=== PATIENT | female | born 1940 | race Caucasian/White ===

== ENCOUNTER 2018-06-30 10:18 | Observation (INO) ==
[2018-06-30] MEDS ORDERED: Gadobutrol PF 2 MMOL/2 ML Vial (for RAD) IV.SIG ONE (10:19)
[2018-06-30] MEDS ORDERED: Morphine Inj 4 MG/ML Vial IM ONE (10:38)
--- NOTE | 2018-06-30 11:10 | XR ---
EXAM DATE: 06/30/2018 11:05 AM EST AGE/SEX: 78 years / Female INDICATIONS: Patient states left hip pain, no known trauma to area. CLINICAL DATA: This is the patient's initial encounter. Patient reports that signs and symptoms have been present for 4 - 6 days and indicates a pain score of 5/10. MEDICAL/SURGICAL HISTORY: None. . Left hip [place] [facility] [place] 2/3VWS[place] WO AP PELVIS, 07/15/2015. . FINDINGS: Today's exam is compared to the prior study. There is a left hip prosthesis in place. The hardware is grossly intact. No acute fracture or joint dislocation is demonstrated. There has been no significan t changes with the appearance of the left hip prosthesis compared to the prior examination. The bony structures of the pelvis are grossly intact. There is some focal degenerative changes at the pubic sy mphysis. CONCLUSION: Stable and unremarkable left hip prosthesis compared to the prior examination. Electronically signed by: Amilcar Chaudhry MD 06/30/2018 11:09 AM EST
--- NOTE | 2018-06-30 11:58 | CT ---
EXAM DATE: 06/30/2018 11:45 AM EST AGE/SEX: 78 years / Female INDICATIONS: Left hip pain unable to walk CLINICAL DATA: This is the patient's initial encounter. Patient reports that signs and symptoms have been present for 1 day and indicates a pain score of 5/10. MEDICAL/SURGICAL HISTORY: Diabetes. . left hip replacement RADIATION DOSE: 21.58 CTDI (mGy) ; Combined studies COMPARISON: No prior exams available for comparison. TECHNIQUE: Contiguous axial images were acquired with a multirow detector CT scanner without contras t. Multiplanar reconstructions in the sagittal and coronal plane were also performed. Using automate d exposure control and adjustment of the mA and/or kV according to patient size, radiation dose was k ept as low as reasonably achievable to obtain optimal diagnostic quality images. DICOM format image data is available electronically for review and comparison. FINDINGS: Vertebrae: No fracture or compression deformity. Alignment: No anterolisthesis or retrolisthesis. T12-L1: There is a minimal diffuse disc bulge. No spinal canal stenosis or neural foraminal stenosis is identified. L1-L2: There is a central disc extrusion that appears to extend both cranially and caudally from the disc space posterior to the L1 and L2 vertebral bodies. This likely has some mass effect on the thec al sac and potential nerve roots in the lateral recesses but no spinal canal stenosis is appreciated and no neural foraminal narrowing is seen. L2-L3: There is a moderate size diffuse disc bulge with small left foraminal disc protrusion. Mild f acet and ligamentum flavum hypertrophy is present. The lateral recesses are likely effaced but no sig nificant spinal canal stenosis is identified. There is mild left neural foraminal narrowing. L3-L4: There is a diffuse disc bulge with mild facet and ligamentum flavum hypertrophy. No spinal ca nal stenosis or neural foraminal narrowing is identified. L4-L5: There is a mild diffuse disc bulge with facet and ligamentum flavum hypertrophy. No spinal ca nal stenosis is identified and there is no significant neural foraminal narrowing. L5-S1: There is a mild diffuse disc bulge with mild facet hypertrophy. No spinal canal stenosis or n eural foraminal stenosis is identified. Other: There is asymmetric enlargement of the left psoas muscle with some degree of inflammation in t he adjacent fat. Aorta and iliac arteries demonstrate moderate to severe atherosclerotic disease and there is calcification throughout the uterine myometrium likely related to calcified blood vessels. CONCLUSION: 1. Mild multilevel degenerative disc disease. At L1-L2 there is a central disc extrusion that may friend ve mass effect on the nerve roots in the lateral recesses but results in no significant spinal canal stenosis or neural foraminal narrowing. 2. There is a disc bulge with small left foraminal disc protrusion at L2-L3 with mild narrowing of t he left neural foramen. 3. There is asymmetric enlargement of the left psoas muscle with adjacent changes suggesting inflamm ation. This is suspected to be the cause for the patient's symptoms and can be seen with spontaneous hemorrhage within the muscle. Suggest correlating with the clinical history for any anticoagulation. Suggest obtaining follow-up to confirm resolution. Electronically signed by: Ephraim Haynes MD 06/30/2018 11:57 AM EST
--- NOTE | 2018-06-30 12:32 | CT ---
EXAM DATE: 06/30/2018 12:03 PM EST AGE/SEX: 78 years / Female INDICATIONS: left hip pain unable to walk fracture CLINICAL DATA: This is the patient's initial encounter. Patient reports that signs and symptoms have been present for 1 day and indicates a pain score of 5/10. MEDICAL/SURGICAL HISTORY: Diabetes. . Left hip replacement RADIATION DOSE: 21.58 CTDI (mGy) ; Combined studies COMPARISON: [facility], CT HIP W/O CONTRAST, LEFT, 04/20/2015. . TECHNIQUE: Multiple contiguous axial images were obtained through the pelvis without contrast. Imag es were obtained using multiple row detector helical technique. . Using automated exposure control an d adjustment of the mA and/or kV according to patient size, radiation dose was kept as low as reasona micheline achievable to obtain optimal diagnostic quality images. DICOM format image data is available moody ctronically for review and comparison. FINDINGS: The bony structures of the pelvis are grossly intact. There is a left hip prosthesis in place. The friend rdware is grossly intact. No evidence of joint dislocation. No definite acute bony fracture is demons trated. There appears to be diffuse enlargement of the left psoas muscle compared to the right. This is probably causing some impingement of the sciatic nerve. There is no free fluid deep in the pelvis. The urinary bladder is unremarkable. The uterus is atrophic. The bowel gas pattern is within normal limits. CONCLUSION: 1. No acute fracture or joint dislocation. There is good position and alignment of the left hip pros thesis. 2. Asymmetric and abnormal diffuse enlargement of the left psoas muscle compared to the right. This could be secondary to an inflammatory process versus an intramuscular hematoma especially if patient is on some type of blood thinners. This needs to be correlated with patient's physical, clinical exam and laboratory values.. Electronically signed by: Amilcar Chaudhry MD 06/30/2018 12:31 PM EST
[2018-06-30 12:53] LABS: Baso % (Auto) 0.3 % (0.0-2.0); Eos % (Auto) 0.3 % (0.0-4.0); Hematocrit 30.5 % (35.0-46.0); Hemoglobin 10.1 gm/dL (11.6-15.3); Lymph % (Auto) 14.1 % (9.0-44.0); Mean Corpuscular HGB Conc 33.1 % (32.0-36.0); Mean Corpuscular Hemoglobin 28.2 pg (27.0-34.0); Mean Corpuscular Volume 85.3 fL (80.0-100.0); Mean Platelet Volume 7.1 fL (7.0-11.0); Mono # (Auto) 0.6 th/mm3 (0.0-0.9); Mono % (Auto) 8.7 % (0.0-8.0); Neut # (Auto) 5.6 th/mm3 (1.8-7.7); Neut % (Auto) 76.6 % (16.0-70.0); Platelet Count 239 th/mm3 (150-450); Red Blood Count 3.57 mil/mm3 (4.00-5.30); Red Cell Distribution Width 19.3 % (11.6-17.2); White Blood Count 7.3 th/mm3 (4.0-11.0)
[2018-06-30 13:05] LABS: Prothrombin Time 10.2 sec (9.8-11.6)
[2018-06-30 13:13] LABS: Alanine Aminotransferase 14 U/L (10-53); Albumin 3.4 g/dL (3.4-5.0); Anion Gap 5 meq/L (5-15); Aspartate Aminotransferase 18 U/L (15-37); Blood Urea Nitrogen 9 mg/dL (7-18); Calcium 8.6 mg/dL (8.5-10.1); Carbon Dioxide 29.7 meq/L (21.0-32.0); Chloride 103 meq/L (98-107); Glomerular Filtration Rate Greater Than 89 mL/min (>89); Glucose,Random 106 mg/dL (74-106); Potassium 4.8 meq/L (3.5-5.1); Sodium 138 meq/L (136-145)
[2018-06-30 13:16] LABS: Alkaline Phosphatase 63 U/L (45-117); Total Protein 7.4 g/dL (6.4-8.2)
--- NOTE | 2018-06-30 14:51 | ECG ---
Date Performed: 06/30/2018 Time Performed: 12:53:28 PTAGE: 78 years EKG: Baseline artifact present Sinus rhythm NONSPECIFIC T-WAVE ABNORMALITY BORDERLINE ECG Compared to prior electrocardiogram, Nonspecific T wav e changes are less marked . PREVIOUS TRACING : 07/14/2015 13.10 DOCTOR: Isra Rubio Interpretating Date/Time 06/30/2018 14:50:42
--- NOTE | 2018-06-30 16:15 | ED ---
HPI General Chief complaint: Extremity Injury, Lower Stated complaint: Hip Pain Time Seen by Provider: 06/30/18 10:26 History of Present Illness HPI narrative: Patient is a 78-year-old female presents emergency department for evaluation of left hip pain radiating down to her left knee for the past 4 weeks. Patient has a history of hip replacement on the left side complicated by multiple dislocations in the past and had to be revised in [address] Bell. Patient states 4 weeks ago when the pain first started she was visiting [place] and went to an ER there, she was diagnosed with a hematoma in her muscle and was told it would heal. Still with no pain relief she recently went to [facility] where she had appropriate imaging studies and then was told the same thing. She has not followed up with her primary care physician or Dr. Ross. She is not on any blood thinners. She denies any fevers cough congestion nausea vomiting or injury prior to the incident. She states that the pain was present for some time before she had a slip and fall a few days ago. No numbness and tingling in her feet, no back pain. States the pain was severe enough that she could not walk today. Symptoms severe, right leg, radiation to right knee, associated signs symptoms and context as above. Related Data Previous Rx's Medication Instructions Recorded docusate sodium [Colace] 100 mg PO BID #60 cap 07/03/18 oxycodone-acetaminophen 1 tab PO Q6HR PRN #50 tab 07/03/18 Allergies Allergy/AdvReac Type Severity Reaction Status Date / Time No Known Allergies Allergy Verified 06/30/18 10:38 Review of Systems ROS: all other systems reviewed are negative [facility] Medical History Medical History Diabetes (Acute) Surgical History Surgical History S/P hip replacement (Acute) Social History Social History Substance History: No History of Abuse Second Hand Smoke Exposure: No Smoking Status: Never smoker How Often Do You Have a Drink Containing Alcohol: Never Recent Travel in [facility] within the Last 8 Weeks: No Recent Out of Country Travel within the Last 8 Weeks: No Immunization History Tetanus Immunization: Unsure Exam Narrative Exam Narrative: GENERAL: Well-developed well-nourished, no obvious distress SKIN: Focused skin assessment warm/dry. HEAD: Atraumatic. Normocephalic. EYES: Pupils equal and round. No scleral icterus. No injection or drainage. ENT: No nasal bleeding or discharge. Mucous membranes pink and moist. NECK: Trachea midline. No JVD. CARDIOVASCULAR: Regular rate and rhythm. No murmur appreciated. RESPIRATORY: No accessory muscle use. Clear to auscultation. Breath sounds equal bilaterally. GASTROINTESTINAL: Abdomen soft, non-tender, nondistended. Hepatic and splenic margins not palpable. MUSCULOSKELETAL: No obvious deformities. No clubbing. No cyanosis. No edema. Patient does have some tenderness with internal and external rotation of the hip however there is more tenderness when she extends or flexes at the hip. Pulse motor and sensory are intact distally in all 4 extremities. NEUROLOGICAL: Awake and alert. No obvious cranial nerve deficits. Motor grossly within normal limits. Normal speech. PSYCHIATRIC: Appropriate mood and affect; insight and judgment normal. Course Initial Documented Vital Signs Temperature 98.5 F 06/30/18 10:29 Pulse Rate 100 H 06/30/18 10:29 Respiratory Rate 18 06/30/18 10:29 Blood Pressure 171/90 H 06/30/18 10:29 Pulse Oximetry 96 06/30/18 10:29 Last Documented Vital Signs Temperature 97.9 F 07/03/18 19:24 Pulse Rate 102 H 07/03/18 19:24 Respiratory Rate 17 07/03/18 19:24 Blood Pressure 130/65 07/03/18 19:24 Pulse Oximetry 93 L 07/03/18 19:24 Sign Out Sign Out Data: Patient Sign Out occurred on 06/30/18 at 17:12. Patient's care was discussed, and care was transferred from William Elena MD to Elmer Hassan MD. Sign Out Comment: Follow up MRI and disposition appropriately. Last updated by William Elena MD at 06/30/18 16:34 Post-Handoff Eval: This case was checked out to me by Dr. Elena at 5 PM. This patient had very extensive workup for her chronic left hip pain. She had x -rays and CTs and MRI imaging. I reviewed the details of these with the patient as well as her orthopedist Dr. Foreman by phone. I tried to ambulate her in the department but that was a failure. She says is too painful and she cannot walk and she sat back down on the bed. She would not take any steps. She has a fluid collection that is most suggestive of a intramuscular hematoma of the left psoas muscle. It does not look like abscess to the radiologist. She does not have fever or leukocytosis. Her orthopedist will do a 23-hour observation in the hospital and will consider fluoroscopically guided aspiration given that is been there for several weeks now. Medical Decision Making MDM Narrative Medical decision making narrative: Patient room to the emergency department, a CT scan of her pelvis does show significant enlargement and engorgement of the left psoas muscle. There is a fluid collection around it. These findings were discussed with radiology as well as the patient's orthopedic surgeon Dr. Foreman. Our concerns are for infectious versus hematoma. Given that the patient is still not had any resolution of the symptoms over weeks my concern is that we have missed something on the patient. After discussion with the radiologist and Dr. Foreman we have agreed that an MRI is the best course of action. I added on an ESR CRP, I also added a CPK. ESR and CPK are really unremarkable. CRP still pending at time of signout. The patient appears well and does not appear toxic. Myositis is fairly well excluded with a negative CPK. These really are not onset of symptoms and findings. At the end of my shift at 1700 the MRIs results still pending the patient was discussed with Dr. Luzma Jorgensen to follow-up MRI and disposition the patient properly. Medical Screen Exam Complete: Yes Emergency Medical Condition: Yes Lab Data Result diagrams: 06/30/18 12:43 06/30/18 12:43 Lab Results 06/30/18 06/30/18 06/30/18 Range/Units 12:43 12:43 12:43 WBC 7.3 (4.0-11.0) th/mm3 RBC 3.57 L (4.00-5.30) mil/mm3 Hgb 10.1 L (11.6-15.3) gm/dL Hct 30.5 L (35.0-46.0) % MCV 85.3 (80.0-100.0) fL MCH 28.2 (27.0-34.0) pg MCHC 33.1 (32.0-36.0) % RDW 19.3 H (11.6-17.2) % Plt Count 239 (150-450) th/mm3 MPV 7.1 (7.0-11.0) fL Neut % (Auto) 76.6 H (16.0-70.0) % Lymph % (Auto) 14.1 (9.0-44.0) % [place] % (Auto) 8.7 H (0.0-8.0) % Eos % (Auto) 0.3 (0.0-4.0) % Baso % (Auto) 0.3 (0.0-2.0) % Neut # (Auto) 5.6 (1.8-7.7) th/mm3 Lymph # (Auto) 1.0 (1.0-4.8) th/mm3 [place] # (Auto) 0.6 (0.0-0.9) th/mm3 Eos # (Auto) 0.0 (0.0-0.4) th/mm3 Baso # (Auto) 0.0 (0.0-0.2) th/mm3 WBC Differential . Differential Comment Auto diff final ESR (0-30) mm/hr PT 10.2 (9.8-11.6) sec INR 1.0 Ratio APTT 26.0 (23.4-31.7) sec Sodium 138 (136-145) meq/L Potassium 4.8 (3.5-5.1) meq/L Chloride 103 (98-107) meq/L Carbon Dioxide 29.7 (21.0-32.0) meq/L Anion Gap 5 (5-15) meq/L BUN 9 (7-18) mg/dL Creatinine 0.60 (0.50-1.00) mg/dL Estimated GFR Greater than 89 (>89) mL/min POC Glucose (68-110) mg/dl Random Glucose 106 (74-106) mg/dL Calcium 8.6 (8.5-10.1) mg/dL Total Bilirubin 0.5 (0.2-1.0) mg/dL AST 18 (15-37) U/L ALT 14 (10-53) U/L Alkaline Phosphatase 63 (45-117) U/L Total Creatine Kinase (26-192) U/L C-Reactive Protein (0.00-0.30) mg/dL Total Protein 7.4 (6.4-8.2) g/dL Albumin 3.4 (3.4-5.0) g/dL 06/30/18 06/30/18 06/30/18 Range/Units 12:43 12:43 12:43 WBC (4.0-11.0) th/mm3 RBC (4.00-5.30) mil/mm3 Hgb (11.6-15.3) gm/dL Hct (35.0-46.0) % MCV (80.0-100.0) fL MCH (27.0-34.0) pg MCHC (32.0-36.0) % RDW (11.6-17.2) % Plt Count (150-450) th/mm3 MPV (7.0-11.0) fL Neut % (Auto) (16.0-70.0) % Lymph % (Auto) (9.0-44.0) % [place] % (Auto) (0.0-8.0) % Eos % (Auto) (0.0-4.0) % Baso % (Auto) (0.0-2.0) % Neut # (Auto) (1.8-7.7) th/mm3 Lymph # (Auto) (1.0-4.8) th/mm3 [place] # (Auto) (0.0-0.9) th/mm3 Eos # (Auto) (0.0-0.4) th/mm3 Baso # (Auto) (0.0-0.2) th/mm3 WBC Differential Differential Comment ESR 32 H (0-30) mm/hr PT (9.8-11.6) sec INR Ratio APTT (23.4-31.7) sec Sodium (136-145) meq/L Potassium (3.5-5.1) meq/L Chloride (98-107) meq/L Carbon Dioxide (21.0-32.0) meq/L Anion Gap (5-15) meq/L BUN (7-18) mg/dL Creatinine (0.50-1.00) mg/dL Estimated GFR (>89) mL/min POC Glucose (68-110) mg/dl Random Glucose (74-106) mg/dL Calcium (8.5-10.1) mg/dL Total Bilirubin (0.2-1.0) mg/dL AST (15-37) U/L ALT (10-53) U/L Alkaline Phosphatase (45-117) U/L Total Creatine Kinase 62 (26-192) U/L C-Reactive Protein 0.63 H (0.00-0.30) mg/dL Total Protein (6.4-8.2) g/dL Albumin (3.4-5.0) g/dL 06/30/18 07/01/18 Range/Units 21:55 08:48 WBC (4.0-11.0) th/mm3 RBC (4.00-5.30) mil/mm3 Hgb (11.6-15.3) gm/dL Hct (35.0-46.0) % MCV (80.0-100.0) fL MCH (27.0-34.0) pg MCHC (32.0-36.0) % RDW (11.6-17.2) % Plt Count (150-450) th/mm3 MPV (7.0-11.0) fL Neut % (Auto) (16.0-70.0) % Lymph % (Auto) (9.0-44.0) % [place] % (Auto) (0.0-8.0) % Eos % (Auto) (0.0-4.0) % Baso % (Auto) (0.0-2.0) % Neut # (Auto) (1.8-7.7) th/mm3 Lymph # (Auto) (1.0-4.8) th/mm3 [place] # (Auto) (0.0-0.9) th/mm3 Eos # (Auto) (0.0-0.4) th/mm3 Baso # (Auto) (0.0-0.2) th/mm3 WBC Differential Differential Comment ESR (0-30) mm/hr PT (9.8-11.6) sec INR Ratio APTT (23.4-31.7) sec Sodium (136-145) meq/L Potassium (3.5-5.1) meq/L Chloride (98-107) meq/L Carbon Dioxide (21.0-32.0) meq/L Anion Gap (5-15) meq/L BUN (7-18) mg/dL Creatinine (0.50-1.00) mg/dL Estimated GFR (>89) mL/min POC Glucose 99 140 H (68-110) mg/dl Random Glucose (74-106) mg/dL Calcium (8.5-10.1) mg/dL Total Bilirubin (0.2-1.0) mg/dL AST (15-37) U/L ALT (10-53) U/L Alkaline Phosphatase (45-117) U/L Total Creatine Kinase (26-192) U/L C-Reactive Protein (0.00-0.30) mg/dL Total Protein (6.4-8.2) g/dL Albumin (3.4-5.0) g/dL Imaging Data Radiologist's impression: Hip X-Ray 06/30/18 10:38 CONCLUSION: Stable and unremarkable left hip prosthesis compared to the prior examination. Lumbar Spine CT 06/30/18 11:14 CONCLUSION: 1. Mild multilevel degenerative disc disease. At L1-L2 there is a central disc extrusion that may have mass effect on the nerve roots in the lateral recesses but results in no significant spinal canal stenosis or neural foraminal narrowing. 2. There is a disc bulge with small left foraminal disc protrusion at L2-L3 with mild narrowing of the left neural foramen. 3. There is asymmetric enlargement of the left psoas muscle with adjacent changes suggesting inflammation. This is suspected to be the cause for the patient's symptoms and can be seen with spontaneous hemorrhage within the muscle. Suggest correlating with the clinical history for any anticoagulation. Suggest obtaining follow-up to confirm resolution. Pelvis CT 06/30/18 11:14 CONCLUSION: 1. No acute fracture or joint dislocation. There is good position and alignment of the left hip prosthesis. 2. Asymmetric and abnormal diffuse enlargement of the left psoas muscle compared to the right. This could be secondary to an inflammatory process versus an intramuscular hematoma especially if patient is on some type of blood thinners. This needs to be correlated with patient's physical, clinical exam and laboratory values.. Pelvis MRI 06/30/18 14:04 CONCLUSION: 1. Abnormal asymmetric enlargement of the left psoas muscle compared to the right. Mixed-signal changes in the body the psoas suggest most likely blood products from intramuscular hemorrhage. Small fluid collection along the lateral left psoas measuring 2.4 cm suggests a liquefying hematoma. No inflammatory changes are seen in the mesenteric fat directly adjacent to the psoas. Therefore, abscess is a less likely possibility. However, this still needs to be correlated with patient's physical, clinical exam and laboratory values for infection. Bone Scan Nuclear Medicine 07/01/18 00:00 CONCLUSION: 1. There is a left hip prosthesis present. Abnormal activity around the left hip is not seen. The right hip appears normal. 2. Scattered areas of increased activity in the glenohumeral joints and the first carpometacarpal joints typically seen with degenerative change. 3. The patient has a left psoas hematoma seen on the prior MRI and CT examination. Lumbar Spine MRI 07/03/18 00:00 CONCLUSION: 1. Complex multiloculated masses seen throughout the left psoas muscle with enhancement and enlargement of the left psoas muscle. Acute hemorrhage versus inflammatory change and abscess could have this appearance. 2. Mild right paracentral disc protrusion at the L1-L2 level. 3. Mild asymmetric disc bulge at the L2-L3 level being worse than the left with mild narrowing of the left neural foramina. 4. Lower lumbar facet hypertrophy. Discharge Plan Discharge Disposition Patient Disposition: ED Admit(ED Internal Use Only) Discharge Condition Condition: Stable Discharge Order Discharge Orders: Discharge Order (Routine); Ordered 07/03/18 Ordered By: Sagar May ED Use Only Admit Order (Routine); Ordered 06/30/18 Ordered By: Elmer Hassan Discharge Details Anticipated Discharge Date: 07/03/18 Discharge Comment: f/u with Dr. Foreman in 2 weeks Diagnosis: Nontraumatic psoas hematoma, Inability to ambulate due to left hip Physicians Team ED Provider: Elmer Hassan Primary Care Provider: Feng Ashraf Attending Provider: Truman Foreman Other Providers: Duane Palacio ; Sagar May ; Margarita Baker,Agency Status ED Status: Left Department Discharge Information Discharge Date/Time: 06/30/18 21:46
--- NOTE | 2018-06-30 17:54 | MR ---
EXAM DATE: 06/30/2018 5:42 PM EST AGE/SEX: 78 years / Female INDICATIONS: . Left hip pain. Evaluate for abscess. CLINICAL DATA: This is the patient's initial encounter. Patient reports that signs and symptoms have been present for 3 days and indicates a pain score of 4/10. MEDICAL/SURGICAL HISTORY: Diabetes mellitus type II. Fusion, cervical. Rotator cuff, left. Lef t hip replacement times two. COMPARISON: [facility] [place], 06/30/2018. . TECHNIQUE: Multiplanar, multisequence MRI examination of the pelvis was performed with [address] (gadobutrol) contrast and without contrast as a single exam dose. FINDINGS: This examination is compared to the recent prior CT scan of the pelvis. There continues to be abnorma l asymmetric enlargement of the left psoas muscle compared to the right. The adjacent mesenteric fat demonstrates no inflammatory changes. There are mixed signal changes within the body of the left psoa s muscle suggestive of some blood products. The findings most likely go along with intramuscular hemo rrhage. There does appear to be a small focal fluid collection along the lateral left psoas muscle me asuring 2.4 x 1.1 cm. This may be some liquefying blood. CONCLUSION: 1. Abnormal asymmetric enlargement of the left psoas muscle compared to the right. Mixed-signal ureña ges in the body the psoas suggest most likely blood products from intramuscular hemorrhage. Small flu id collection along the lateral left psoas measuring 2.4 cm suggests a liquefying hematoma. No inflam matory changes are seen in the mesenteric fat directly adjacent to the psoas. Therefore, abscess is a less likely possibility. However, this still needs to be correlated with patient's physical, clinica l exam and laboratory values for infection. Electronically signed by: Amilcar Chaudhry MD 06/30/2018 5:53 PM EST
--- NOTE | 2018-07-01 07:40 | MH ---
cc: Truman Foreman MD DATE OF ADMISSION: 06/30/2018 DIAGNOSIS: Severe left hip and left thigh pain. HISTORY OF PRESENT ILLNESS: The patient was in [place] 3-4 weeks ago and she 1 day woke up and could not move because of inability to move left lower extremity associated with pain. Was admitted to the hospital through the emergency room there; and after 3 days of tests, was told that she had a hematoma in her psoas muscle and that it would resolve. She said she was able to return to [place] on her own and had recurrence of pain and apparently went to [facility] and then to her primary care physician at [facility] and was told the same thing. Yesterday, she could not get up from her bed, so she came to the emergency room and was evaluated. X-rayed and lab tests done. She has a CT scan of the pelvis and lumbar spine, x-rays of the left hip, MRI of the pelvis, and lab tests. All the radiological studies show enlargement of the psoas muscle with some fluid and no obvious fluid collection in the left hip. She has mild elevation of sedimentation rate and CRP. She has had no fever. She has no leukocytosis. She has mild shift to the left with mildly elevated neutrophils. PAST MEDICAL HISTORY: She had total hip replacement arthroplasty in 2012 of the left hip with an anterior approach. Two years after the surgery, she had a traumatic dislocation of the left hip, followed by recurrent dislocation for which she had revision surgery in 06/2015 with a dual mobility hip replacement. She has had some occasional pain in the left hip, but nothing of significance. She received injection of the trochanteric bursa about more than a year ago and she has not been seen in the last year. She states she has not had any symptoms there until this recent episode. Other history, she has a left shoulder rotator cuff repair arthroscopically, which was successful. ALLERGIES: NO ALLERGIES. PHYSICAL EXAMINATION: GENERAL: Reveals a small statured white female who is in no obvious distress. She is moving around in her bed. She is awake, alert, and oriented. EXTREMITIES: When I move her left hip, she has a lot of pain, but there is no guarding. There is not much restriction of range of motion of the left hip. She states indeed that she got up to the bedside commode this morning on her own. There is no swelling around the left hip. There is a well-healed anterior and a well-healed lateral scar. No induration or redness. She has diffuse discomfort all around. She said the pain radiates all the way to the left knee. She has palpable pedal pulses in the left foot. She moves her toes well. HEENT: Head is normocephalic. Face is symmetrical. HEART: Regular rate and rhythm. No murmurs. LUNGS: Clear to auscultation. ABDOMEN: She has some discomfort in the left lower quadrant, but no rebound or anything. PLAN: I have discussed the radiological findings with Dr. Lemon this morning and he felt that there was not enough to diagnose an infection in the hip itself or to warrant aspiration. I am going to go ahead and get an infectious disease consult, a hospitalist consult, and also ordered a 3-phase bone scan and to see what that shows, after which will determine further disposition as to whether there is indication for diagnostic aspiration of the left hip or any dedicated testing of the left hip such as an MRI scan. MD DARCY Aponte/carmelo , 07:17 AM , 07:28 AM
--- NOTE | 2018-07-01 12:35 | MB ---
cc: Duane Palacio MD DATE: 07/01/2018 REQUESTING PHYSICIAN: Truman Foreman MD REASON: Unexplained left psoas hematoma. The patient is 3 years post-revision total hip arthroplasty; evaluation and recommendation. HISTORY OF PRESENT ILLNESS: This is a 78-year-old white female who began to experience pain in her left hip approximately 3 weeks ago. The patient was up in [place] vacationing and states that she was climbing up 3 flights of stairs to the apartment where she was residing. She reports that she suddenly developed pain in the left hip and she was taken to the hospital in [place] because she had difficulty walking. She was evaluated and she was discharged because she was felt to have hematoma in the psoas muscle. The patient reports that approximately 3 days ago, she got up from bed to reach into a closet and she fell backwards onto her suitcase. She states that she did not feel pain at that time. However, later on she started getting more pain and had difficulty getting out of bed because of the pain in the left hip and she was brought to the emergency department for evaluation. She is receiving pain medication. She states that when the pain medicine wears off the pain recurs. She notes her pain currently is approximately 5/10 scale. Radiographic studies were performed here: 1. Lumbar spine CT shows disc bulge with small left foraminal disk protrusion at L2-L4 and mild narrowing of the left neural foramen. Asymmetric enlargement of the left psoas muscle with adjacent changes suggesting inflammation. 2. A pelvic MRI showed a small fluid collection along the lateral left psoas measuring 2.4 cm suggesting liquefying hematoma. Asymmetric enlargement of the left psoas muscle was noted. No inflammatory changes were seen in the mesenteric fat directly adjacent to the psoas. The patient denies fever. She states that she gets hot and cold off and on, but no obvious chills. She denies sweats. Her temperature has been normal here in the emergency department. White blood cell count is normal. Sedimentation rate is mildly elevated at 32. C-reactive protein is mildly elevated. The patient denies other symptoms. The patient has not been on any antibiotics lately. She reports that she has had an injection into the left hip, but none in many months. She does not recall when she had the last injection into the hip. Per Dr. Foreman's note, it was more than a year ago. PAST MEDICAL HISTORY: Diabetes mellitus, total hip replacement of the left hip in 2013 and revision in 2015, left shoulder rotator cuff repair. ALLERGIES: NO KNOWN DRUG ALLERGIES. MEDICATIONS: Percocet 5 p.r.n. SOCIAL HISTORY: No tobacco, no alcohol, no illicit drugs. FAMILY HISTORY: Noncontributory. REVIEW OF SYSTEMS: All systems have been reviewed and are negative, except for aspects mentioned in the history of present illness, namely pain in the left hip. PHYSICAL EXAMINATION: GENERAL: She is a petite female who is in no acute distress. She is awake and alert and oriented. VITAL SIGNS: Temperature 98 degrees, BP 123/77, respirations 16, heart rate 109. HEAD, EARS, EYES, NOSE AND THROAT: The head is atraumatic. Extraocular movements grossly intact. No icterus. Oropharynx: Moist mucosa without lesions. NECK: Supple without swelling. LUNGS: Clear, decreased breath sounds. HEART: Regular S1 and S2 without murmurs, rubs or gallops. ABDOMEN: Bowel sounds present. Soft, no tenderness appreciated. RECTAL: Not performed. EXTREMITIES: The left hip reveals no swelling and no erythema. One focal area of tenderness on deep palpation at the posterior aspect around the buttock area. Decreased range of motion. There is no clubbing, cyanosis or edema. SKIN: No rash. The skin is warm. NEUROLOGIC: No gross focal findings. PSYCHIATRIC: The patient is calm and cooperative. LABORATORY DATA: WBC: 7.3 platelets, 239 differential, 76% neutrophils, 14% lymphocytes, hemoglobin 10.1. Creatinine 0.6, BUN 9, sodium 138. Liver function test normal. C-reactive protein 0.63. Sedimentation rate 32. IMPRESSION: Left psoas hematoma. The patient is without symptomatology to suggest an infection and certainly there is no evidence of cellulitis at the left hip. She very likely has hematoma that is not infected. The only way to determine whether this is infection would be to aspirate the fluid for culture. I think infection is probably low likelihood and therefore, I would not recommend starting antibiotics. Thank you for this consultation. I will follow the patient's progress along with you. Duane Palacio MD FFD/vindo/florence , 11:18 AM , 11:35 AM KERON
--- NOTE | 2018-07-01 14:35 | NM ---
EXAM DATE: 07/01/2018 1:36 PM EST AGE/SEX: 78 years / Female INDICATIONS: Left hip pain. CLINICAL DATA: This is the patient's initial encounter. Patient reports that signs and symptoms have been present for 2 days and indicates a pain score of 3/10. MEDICAL/SURGICAL HISTORY: Diabetes mellitus type II. . Left hip replacement. COMPARISON: [facility], MR PELVIS W & W/O CONTRAST, 06/30/2018. [facility], CT PELVIS W/O CONTRAST, 06/30/2018 . [facility], CHEST SINGLE AP, 04/10/2015. . TECHNIQUE: Three-phase bone scanning of the left hip. was performed. No correlative bone scan available for comparison. DOSE: 30.1 mCi Tc99m MDP IV FINDINGS: There is symmetric arrival of radiotracer bilaterally on the flow study. No areas of increased uptake on the blood pool images. There is a defect seen at the left hip from a prosthesis. Normal activity is seen at the right hip. There is increased activity seen over the shoulder regions bilaterally whi ch could be related to degenerative change. This appears fairly symmetric. This increased activity se en at the first carpometacarpal joints likely from degenerative change. CONCLUSION: 1. There is a left hip prosthesis present. Abnormal activity around the left hip is not seen. The ri ght hip appears normal. 2. Scattered areas of increased activity in the glenohumeral joints and the first carpometacarpal chloe ints typically seen with degenerative change. 3. The patient has a left psoas hematoma seen on the prior MRI and CT examination. Electronically signed by: Ephraim Farooq MD 07/01/2018 2:34 PM EST
--- NOTE | 2018-07-01 17:54 | P.CONIM ---
History of Present Illness Primary Care Provider: Feng Ashraf MD History of Present Illness: This is a 78-year-old white female who began to experience pain in herleft hip approximately 3 weeks ago. The patient was up in [place] vacationing and states that she was climbing up 3 flights of stairs tothe apartment where she was residing. She reports that she suddenly developed pain in the left hip and she was taken to the hospital in [place] because she had difficulty walking. She was evaluated and she was discharged because she was felt to have hematoma in the psoas muscle. The patient reports that approximately 3 days ago, she got upfrom bed to reach into a closet and she fell backwards onto her suitcase. She states that she did not feel pain at that time. However, later on she started getting more pain and had difficulty getting out of bed because of the pain in the left hip and she was brought to the emergency department for evaluation. She is receiving pain medication. She states that when the pain medicine wears off thepain recurs. She notes her pain currently is approximately 5/10 scale. [facility] Medical History Medical History Diabetes (Acute) Surgical History Surgical History S/P hip replacement (Acute) Social History Social History Substance History: No History of Abuse Second Hand Smoke Exposure: No Smoking Status: Never smoker How Often Do You Have a Drink Containing Alcohol: Never Recent Travel in [facility] within the Last 8 Weeks: No Recent Out of Country Travel within the Last 8 Weeks: No Immunization History Tetanus Immunization: Unsure Hx Influenza Vaccine This Season: Yes Medications and Allergies Allergies Allergy/AdvReac Type Severity Reaction Status Date / Time No Known Allergies Allergy Verified 06/30/18 10:38 Home Medications Medication Instructions Recorded Confirmed Type hydrocodone-acetaminophen 1 tab PO Q4-6H PRN 06/30/18 06/30/18 History Active Medications: Active Medications Oxycodone/Acetaminophen (Percocet 5/325 Mg) 1 tab PO Q4H PRN PRN Reason: Acute Pain Last Admin: 07/01/18 14:27 Dose: 1 tab Sodium Chloride (Ns Flush) 2 ml IV.FLUSH UNSCH PRN PRN Reason: FLUSH AFTER USING IV ACCESS Physical Exam Vital signs: Last Vital Signs Temp 98.4 F 07/01/18 15:46 Pulse 105 H 07/01/18 15:46 Resp 16 07/01/18 15:46 BP 116/59 L 07/01/18 15:46 Pulse Ox 98 07/01/18 15:46 Narrative: GENERAL: This is a well-nourished, well-developed patient, in no apparent distress. CARDIOVASCULAR: Regular rate and rhythm without murmurs, gallops, or rubs. RESPIRATORY: Clear to auscultation. Breath sounds equal bilaterally. No wheezes , rales, or rhonchi. GASTROINTESTINAL: Abdomen soft, non-tender, nondistended. Normal active bowel sounds MUSCULOSKELETAL: Extremities without clubbing, cyanosis, or edema. NEURO: Alert & Oriented x4 to person, place, time, situation. Moves all ext x4 Results Labs CBC & Chem 7: 06/30/18 12:43 06/30/18 12:43 Assessment and Plan Assessment (1) Nontraumatic psoas hematoma: Code(s): M79.81 - Nontraumatic hematoma of soft tissue Status: Acute (2) Inability to ambulate due to left hip: Code(s): R26.2 - Difficulty in walking, not elsewhere classified Status: Acute Plan: 1) Left Psoas Hematoma - will d/w ID - will d/w Orthopedist - narcotics prn - PT to assess - will likely require SNF - SCDs for DVT prophylaxis - supportive care - anticpate d/c to SNF in 1-2 days
--- NOTE | 2018-07-02 10:06 | P.PNOP ---
Subjective Interval history: no change. They are going to drain it today Physical Exam Vital signs: Vital Signs 07/01/18 12:00 07/01/18 15:46 07/01/18 19:45 Temperature 98.0 F 98.4 F 98.5 F Pulse Rate 114 H 105 H 115 H Respiratory Rate 16 16 16 Blood Pressure 115/68 116/59 L 106/63 Pulse Oximetry 95 98 95 07/01/18 23:33 07/02/18 04:00 07/02/18 07:22 Temperature 98.3 F 97.9 F 98.7 F Pulse Rate 109 H 104 H 100 H Respiratory Rate 14 16 16 Blood Pressure 104/70 111/75 125/72 Pulse Oximetry 95 97 96 Intake & Output 07/01/18 07/02/18 07/02/18 18:59 06:59 18:59 Other: # Voids 2 Narrative: no change Results - Labs CBC & Chem 7: 06/30/18 12:43 06/30/18 12:43 - Imaging Impressions Bone Scan Nuclear Medicine 07/01/18 00:00 CONCLUSION: 1. There is a left hip prosthesis present. Abnormal activity around the left hip is not seen. The right hip appears normal. 2. Scattered areas of increased activity in the glenohumeral joints and the first carpometacarpal joints typically seen with degenerative change. 3. The patient has a left psoas hematoma seen on the prior MRI and CT examination. Assessment and Plan - Assessment and Plan Still no clear diagnosis as to origin of psoas hematoma, posible ( remote) abscess Bone scan basically rules out inflammation around left total hip. If there was infection or inflammation originating in left hip, there should be at least some increased uptake on 3-phase bpne scan. We will see what the aspiration yields
--- NOTE | 2018-07-02 15:52 | P.PNID ---
Subjective Remarks: Patient feels same pain in the left buttock and radiating to the left anterior thigh. No fever or chills. This is a 78-year-old white female who began to experience pain in her left hip approximately 3 weeks ago. The patient was up in [place] vacationing and states that she was climbing up 3 flights of stairs to the apartment where she was residing. She reports that she suddenly developed pain in the left hip and she was taken to the hospital in [place] because she had difficulty walking. She was evaluated and she was discharged because she was felt to have hematoma in the psoas muscle. The patient reports that approximately 3 days ago, she got up from bed to reach into a closet and she fell backwards onto her suitcase. She states that she did not feel pain at that time. However, later on she started getting more pain and had difficulty getting out of bed because of the pain in the left hip and she was brought to the emergency department for evaluation. Past Medical History: PAST MEDICAL HISTORY: Diabetes mellitus, total hip replacement of the left hip in 2012 and revision in 2014, left shoulder rotator cuff repair. Allergies/Adverse Reactions: Allergies No Known Allergies Allergy (Verified 06/30/18 10:38) Objective Vital Signs 07/01/18 15:46 07/01/18 19:45 07/01/18 23:33 Temperature 98.4 F 98.5 F 98.3 F Pulse Rate 105 H 115 H 109 H Respiratory Rate 16 16 14 Blood Pressure 116/59 L 106/63 104/70 Pulse Oximetry 98 95 95 07/02/18 04:00 07/02/18 07:22 07/02/18 08:00 Temperature 97.9 F 98.7 F Pulse Rate 104 H 100 H Respiratory Rate 16 16 18 Blood Pressure 111/75 125/72 Pulse Oximetry 97 96 07/02/18 11:36 Temperature 98.0 F Pulse Rate 98 H Respiratory Rate 16 Blood Pressure 132/70 Pulse Oximetry 95 Intake & Output 07/01/18 07/02/18 07/02/18 18:59 06:59 18:59 Other: # Voids 2 Lab - Chemistry Results 06/30/18 06/30/18 07/01/18 12:43 21:55 08:48 POC Glucose 99 140 H C-Reactive Protein 0.63 H Imaging: ITS Impressions Hip X-Ray 06/30/18 10:38 CONCLUSION: Stable and unremarkable left hip prosthesis compared to the prior examination. Lumbar Spine CT 06/30/18 11:14 CONCLUSION: 1. Mild multilevel degenerative disc disease. At L1-L2 there is a central disc extrusion that may have mass effect on the nerve roots in the lateral recesses but results in no significant spinal canal stenosis or neural foraminal narrowing. 2. There is a disc bulge with small left foraminal disc protrusion at L2-L3 with mild narrowing of the left neural foramen. 3. There is asymmetric enlargement of the left psoas muscle with adjacent changes suggesting inflammation. This is suspected to be the cause for the patient's symptoms and can be seen with spontaneous hemorrhage within the muscle. Suggest correlating with the clinical history for any anticoagulation. Suggest obtaining follow-up to confirm resolution. Pelvis CT 06/30/18 11:14 CONCLUSION: 1. No acute fracture or joint dislocation. There is good position and alignment of the left hip prosthesis. 2. Asymmetric and abnormal diffuse enlargement of the left psoas muscle compared to the right. This could be secondary to an inflammatory process versus an intramuscular hematoma especially if patient is on some type of blood thinners. This needs to be correlated with patient's physical, clinical exam and laboratory values.. Pelvis MRI 06/30/18 14:04 CONCLUSION: 1. Abnormal asymmetric enlargement of the left psoas muscle compared to the right. Mixed-signal changes in the body the psoas suggest most likely blood products from intramuscular hemorrhage. Small fluid collection along the lateral left psoas measuring 2.4 cm suggests a liquefying hematoma. No inflammatory changes are seen in the mesenteric fat directly adjacent to the psoas. Therefore, abscess is a less likely possibility. However, this still needs to be correlated with patient's physical, clinical exam and laboratory values for infection. Bone Scan Nuclear Medicine 07/01/18 00:00 CONCLUSION: 1. There is a left hip prosthesis present. Abnormal activity around the left hip is not seen. The right hip appears normal. 2. Scattered areas of increased activity in the glenohumeral joints and the first carpometacarpal joints typically seen with degenerative change. 3. The patient has a left psoas hematoma seen on the prior MRI and CT examination. Physical Exam: GENERAL: No acute distress. Awake and alert and oriented. HEAD, EARS, EYES, NOSE AND THROAT: The head is atraumatic. Extraocular movements grossly intact. No icterus. Oropharynx: Moist mucosa without lesions. NECK: Supple without swelling. LUNGS: Clear breath sounds. HEART: Regular S1 and S2 without murmurs, rubs or gallops. EXTREMITIES: The left hip reveals no swelling and no erythema. Area of tenderness on palpation at the posterior aspect around the buttock area. Decreased range of motion. SKIN: No rash. The skin is warm. NEUROLOGIC: No gross focal findings. PSYCHIATRIC: Calm and cooperative. Assessment and Plan - Plan IMPRESSION: Left psoas hematoma. The patient is without symptomatology to suggest an infection and no evidence of cellulitis at the left hip. RECOMMEND: Hold off on antibiotics. Apply K thermal pad to the left buttock. Discussed with Dr Foreman. Plans for rehab therapy.
--- NOTE | 2018-07-02 19:11 | P.PNIM ---
Subjective Interval history: continued severe left hip pain limiting ambulation. Physical Exam Vital signs: Last Vital Signs Temp 98.0 F 07/02/18 16:00 Pulse 109 H 07/02/18 16:00 Resp 16 07/02/18 16:00 BP 138/87 07/02/18 16:00 Pulse Ox 98 07/02/18 16:00 Narrative: GENERAL: This is a well-nourished, well-developed patient, in no apparent distress. CARDIOVASCULAR: Regular rate and rhythm without murmurs, gallops, or rubs. RESPIRATORY: Clear to auscultation. Breath sounds equal bilaterally. No wheezes , rales, or rhonchi. GASTROINTESTINAL: Abdomen soft, non-tender, nondistended. Normal active bowel sounds MUSCULOSKELETAL: Extremities without clubbing, cyanosis, or edema. NEURO: Alert & Oriented x4 to person, place, time, situation. Moves all ext x4 Results Labs CBC & Chem 7: 06/30/18 12:43 06/30/18 12:43 Assessment and Plan Assessment (1) Nontraumatic psoas hematoma: Code(s): M79.81 - Nontraumatic hematoma of soft tissue Status: Acute (2) Inability to ambulate due to left hip: Code(s): R26.2 - Difficulty in walking, not elsewhere classified Status: Acute Plan Psoas Hematoma, left - case d/w IR, can NOT aspirate - case d/w ID, Dr. Starks (07/02), likely non-infectious - NO ABX - Case d/w Dr. Dickey (07/02/18) - obtain MRI lumbar spine - anticipate d/c to SNF 07/03/18 - percocet prn - DVT prophylaxis with SCDs - supportive care Progress Note: Quality VTE Deep Vein Thrombosis/Pulmonary Embolism Present on Admission: No
--- NOTE | 2018-07-03 11:16 | P.DS ---
DS: Providers Date of admission: 06/30/18 19:49 Primary care physician: Feng Ashraf MD Consults: 07/01/18 07:03 Consult to Infectious Diseases Routine Consulting Provider: Duane Palacio Preferred Research Management Associate:: Duane Palacio Reason for Consultation: unexplained left psoas hematoma, 3 yrs post revision JEF Please evaluATE AND RECOMMEND Notified:: Service Spoke with:: Maranda Date Notified:: 07/01/18 Time Notified:: 07:11 Ordering Provider: BRUNA 07/01/18 07:06 Consult to Hospitalist Routine Consulting Provider: Sagar May Preferred Research Management Associate:: Alessandro Jay Reason for Consultation: 3 YRS POST LEFT TOTAL HIP, sudden onset pain 3 weeksago Studies show psoas hematoma. ID consult and bone scan pending Notified:: Service Spoke with:: Alejandra Date Notified:: 07/01/18 Time Notified:: 07:15 Ordering Provider: BRUNA DS: Diagnosis Discharge Diagnosis (1) Nontraumatic psoas hematoma: Status: Acute (2) Inability to ambulate due to left hip: Status: Acute DS: Summary Psoas Hematoma, left - case d/w IR, can NOT aspirate - case d/w ID, Dr. Starks (07/03), likely non-infectious - NO ABX - Case d/w Dr. Dickey (07/02/18) - MRI lumbar spine (07/03/18) - NO acute pathology - d/c to SNF - percocet prn - see discharge orders E-FORCSE Prescription Drug Monitoring Database has been queried and verified prior to prescribing the controlled substance. Acute pain exception. This patient has normal, predicted, physiological, and time limited response to an adverse mechanical stimulus associated with surgery, trauma, or acute illness as described in my notes. There is a lack of alternative treatment options other than to include the prescribed narcotic treatment for this condition. Time Spent with Patient Total time spent providing and/or coordinating discharge services: Quality: VTE Deep Vein Thrombosis/Pulmonary Embolism Present on Admission: No Exam Narrative Exam Narrative: GENERAL: This is a well-nourished, well-developed patient, in no apparent distress. CARDIOVASCULAR: Regular rate and rhythm without murmurs, gallops, or rubs. RESPIRATORY: Clear to auscultation. Breath sounds equal bilaterally. No wheezes , rales, or rhonchi. GASTROINTESTINAL: Abdomen soft, non-tender, nondistended. Normal active bowel sounds MUSCULOSKELETAL: Extremities without clubbing, cyanosis, or edema. NEURO: Alert & Oriented x4 to person, place, time, situation. Moves all ext x4 Results Impressions ITS Impressions Hip X-Ray 06/30/18 10:38 CONCLUSION: Stable and unremarkable left hip prosthesis compared to the prior examination. Lumbar Spine CT 06/30/18 11:14 CONCLUSION: 1. Mild multilevel degenerative disc disease. At L1-L2 there is a central disc extrusion that may have mass effect on the nerve roots in the lateral recesses but results in no significant spinal canal stenosis or neural foraminal narrowing. 2. There is a disc bulge with small left foraminal disc protrusion at L2-L3 with mild narrowing of the left neural foramen. 3. There is asymmetric enlargement of the left psoas muscle with adjacent changes suggesting inflammation. This is suspected to be the cause for the patient's symptoms and can be seen with spontaneous hemorrhage within the muscle. Suggest correlating with the clinical history for any anticoagulation. Suggest obtaining follow-up to confirm resolution. Pelvis CT 06/30/18 11:14 CONCLUSION: 1. No acute fracture or joint dislocation. There is good position and alignment of the left hip prosthesis. 2. Asymmetric and abnormal diffuse enlargement of the left psoas muscle compared to the right. This could be secondary to an inflammatory process versus an intramuscular hematoma especially if patient is on some type of blood thinners. This needs to be correlated with patient's physical, clinical exam and laboratory values.. Pelvis MRI 06/30/18 14:04 CONCLUSION: 1. Abnormal asymmetric enlargement of the left psoas muscle compared to the right. Mixed-signal changes in the body the psoas suggest most likely blood products from intramuscular hemorrhage. Small fluid collection along the lateral left psoas measuring 2.4 cm suggests a liquefying hematoma. No inflammatory changes are seen in the mesenteric fat directly adjacent to the psoas. Therefore, abscess is a less likely possibility. However, this still needs to be correlated with patient's physical, clinical exam and laboratory values for infection. Bone Scan Nuclear Medicine 07/01/18 00:00 CONCLUSION: 1. There is a left hip prosthesis present. Abnormal activity around the left hip is not seen. The right hip appears normal. 2. Scattered areas of increased activity in the glenohumeral joints and the first carpometacarpal joints typically seen with degenerative change. 3. The patient has a left psoas hematoma seen on the prior MRI and CT examination. Discharge Plan Discharge Details Diagnosis: Nontraumatic psoas hematoma, Inability to ambulate due to left hip Physicians Team ED Provider: Elmer Hassan Primary Care Provider: Feng Ashraf Attending Provider: Truman Foreman Other Providers: Duane Palacio ; Sagar May Rxs /Orders / Referrals /Forms Prescriptions: No Action hydrocodone-acetaminophen 5-325 mg Tablet 1 tab PO Q4-6H PRN (Reason: Pain) RF: 0 Status ED Status: Left Department
[2018-07-03] MEDS ORDERED: Gadobutrol PF 2 MMOL/2 ML Vial (for RAD) IV.SIG ONE (12:45)
--- NOTE | 2018-07-03 14:23 | MR ---
EXAM DATE: 07/03/2018 12:54 PM EST AGE/SEX: 78 years / Female INDICATIONS: Pain. CLINICAL DATA: This is the patient's subsequent encounter. Patient reports that signs and symptoms h ave been present for 3 days and indicates a pain score of 5/10. MEDICAL/SURGICAL HISTORY: Diabetes. Fusion, cervical. Rotator cuff, left. Left hip replacement . COMPARISON: [facility] – [place], [place], CT LUMBAR SPINE W/O CONTRAST, 06/30/2018. . TECHNIQUE: Multiplanar, multisequence MRI examination of the lumbar spine was performed without and with 5 ml Gadavist (gadobutrol) contrast as a single exam dose. FINDINGS: The most caudal-appearing lumbar vertebra is numbered as L5. There is a complex mass seen in the left psoas muscle. This extends over a 13 cm in length and consis t of multiple cystic areas. There is enhancement seen throughout the left psoas muscle. This could ei ther be a prominent area of hemorrhage or abscess. Vertebra: Homogeneous signal. Normal alignment. Conus: Normal level and configuration. Post Contrast: No abnormal areas of contrast enhancement are seen. T12-L1: The thecal sac has a normal diameter. No evidence of disc bulge or protrusion. The neural foramina are patent bilaterally. L1-L2: There is a mild right paracentral disc protrusion without significant stenosis. The thecal s ac has a normal diameter. The neural foramina are patent bilaterally. L2-L3: There is minimal asymmetric disc bulge being worse on the left. Significant narrowing of the thecal sac is not seen. There is mild narrowing of the left neural foramina. The right neural forami na is patent. L3-L4: The thecal sac has a normal diameter. No evidence of disc bulge or protrusion. There is so me focal bright signal at the posterior left lateral aspect of the disc which may represent an annula r tear. The neural foramina are patent bilaterally. L4-L5: The thecal sac has a normal diameter. No evidence of disc bulge or protrusion. The neural foramina are patent bilaterally. There is mild facet hypertrophy. L5-S1: The thecal sac has a normal diameter. No evidence of disc bulge or protrusion. The neural foramina are patent bilaterally. There is mild facet hypertrophy. CONCLUSION: 1. Complex multiloculated masses seen throughout the left psoas muscle with enhancement and enlargem ent of the left psoas muscle. Acute hemorrhage versus inflammatory change and abscess could have this appearance. 2. Mild right paracentral disc protrusion at the L1-L2 level. 3. Mild asymmetric disc bulge at the L2-L3 level being worse than the left with mild narrowing of th e left neural foramina. 4. Lower lumbar facet hypertrophy. Electronically signed by: Ephraim Farooq MD 07/03/2018 2:21 PM EST
== END 2018-07-03 20:00 ==
LOC: NEPD 10:18 → NEDA 10:18 → NEPGCP 21:37
PROVIDERS: ADMIT Orthopaedic Surgery; ATTEND Orthopaedic Surgery